=== PATIENT | male | born 1955 | race Caucasian/White ===

== ENCOUNTER 2023-05-27 01:51 | Day surgery (SDC) | payer MEDICARE, SELFPAY ==
[2023-05-14 09:33] VITALS: BMI 28.3
[2023-05-27 06:19] VITALS: BP 156/76; RESP 18; TEMP 36.1; O2SAT 97
[2023-05-27] MEDS: LACTATED RINGERS 1,000 ML 150 ML IV CONT (06:30)
--- NOTE | 2023-05-27 07:14 | P.PNAN_ITS ---
Anes - Initial Pre Proc Eval Procedure: Operation Date: 05/27/23 07:30 Proposed Procedures p Screening Colonoscopy - Shahzad Christensen MD Date/Time: 05/27/23 07:14 Surgeon: Shahzad Christensen MD Pre Op Diagnosis: neoplasm screening Patient Data Age: 68 Gender: M Height: 1.8 m Weight: 92.3 kg Last Vital Signs Temp 97 F L 05/27/23 06:19 Resp 18 05/27/23 06:19 BP 156/76 H 05/27/23 06:19 Pulse Ox 97 05/27/23 06:19 O2 Del Method Room Air 05/27/23 06:19 Allergies Allergy/AdvReac Type Severity Reaction Status Date / Time No Known Allergies Allergy Verified 05/27/23 06:18 Home Medications Medication Instructions Recorded Confirmed Type sodium,potassium,mag sulfates 17.5 See Rx Instructions PO .COMPLEX 04/17/23 Rx gram-3.13 gram-1.6 gram oral soln #354 mL (Suprep Bowel Prep Kit) alprazolam 0.5 mg tablet 0.5 mg PO TID PRN Anxiety 05/14/23 05/14/23 History Patient hx anesthesia problems: none Family hx anesthesia problems: none Results Review: All pre-operative results and documents have been reviewed as part of the pre- operative evaluation. [facility] Social History Social History Smoking status: Never smoker Alcohol intake: current Alcohol use details: Socially Substance use type: does not use Living arrangements: other Additional living arrangements comments: With sp Anes - Eval Final PreProcedure Day of Procedure 05/27/23 07:14 Patient weight: obese Heart: regular rate and rhythm Lungs: clear to auscultation Airway: Mallampati scale class II Neurological: alert and oriented Last oral intake: >/= 8 hours ASA classification: II Emergent: no Anesthetic plan: proceed Anesthesia type and monitoring: general GIVS and standard monitoring Results Review: All pre-operative results and documents have been reviewed as part of the pre- operative evaluation. Informed Consent: The patient's anesthetic plan and its attendant risks and benefits were discussed with the patient/family/POA. Questions were solicited and answers provided to the satisfaction of the patient/family/POA.
--- NOTE | 2023-05-27 07:38 | PM.HPGS ---
History of Present Illness History of Present Illness Consent: Risks, benefits, and alternatives have been discussed and questions answered. Patient agrees to proceed with procedure. Chief complaint: neoplasm screening Narrative: Robson Jasso is a 68 year old male Presents for screening colonoscopy. Patient reports previous colonoscopy 6 or 7 years ago performed to [facility] may have shown a colon polyp. Patient reports that his current weight appetite and bowel movements are normal. Patient denies abdominal pain. He has had no bleeding. Family history is noncontributory. Review of Systems Review of Systems: Review of systems noncontributory. [facility] Social History Social History Smoking status: Never smoker Alcohol intake: current Alcohol use details: Socially Substance use type: does not use Living arrangements: other Additional living arrangements comments: With sp Meds Home Medications and Allergies Home Medications Medication Instructions Recorded Confirmed Type sodium,potassium,mag sulfates 17.5 See Rx Instructions PO .COMPLEX 04/17/23 Rx gram-3.13 gram-1.6 gram oral soln #354 mL (Suprep Bowel Prep Kit) alprazolam 0.5 mg tablet 0.5 mg PO TID PRN Anxiety 05/14/23 05/14/23 History Allergies Allergy/AdvReac Type Severity Reaction Status Date / Time No Known Allergies Allergy Verified 05/27/23 06:18 Vital Signs Vital Signs - 24 hr 05/27/23 06:19 Temperature 97 F L Respiratory Rate 18 Blood Pressure 156/76 H Pulse Oximetry 97 Oxygen Delivery Room Air Exam Narrative: Physical exam reveals patient to be alert. Vital signs stable. HEENT exam is unremarkable. Patient is anicteric. Lungs are clear to auscultation and percussion part. Heart is without murmur or extra sounds. Abdomen bowel sounds are present soft nontender with no hepatosplenomegaly. Digital external rectal exam is normal. Assessment and Plan Assessment and plan (1) Encounter for screening colonoscopy: Code(s): Z12.11 - Encounter for screening for malignant neoplasm of colon Status: Acute Assessment and Plan: Patient presents today for colonoscopy. Appears to be at average risk for colon polyps. May have had colon polyps some years back.
[2023-05-27] MEDS: SIMETHICONE ORAL SUSPENSION 20 MG/0.3 ML 30 ML BOTTLE 0.6 ML IRRIGATION (07:44)
[2023-05-27 07:52] VITALS: BP 131/84; RESP 20; O2SAT 97
[2023-05-27 08:02] VITALS: BP 121/84; RESP 15; O2SAT 100
[2023-05-27 08:12] VITALS: BP 137/83; RESP 16; O2SAT 100
== END 2023-05-27 08:15 | disposition home or self-care (01) ==
PROVIDERS: PCP Family Medicine; Visit Provider Internal Medicine Gastroenterology
PROC: 0DJD8ZZ Inspection of Lower Intestinal Tract, Via Natural or Artificial Opening Endoscopic (ICD-10-PCS; CPT 45378; principal; 2023-05-27 07:30)
DX: Z12.11 Encounter for screening for malignant neoplasm of colon (principal); K57.30 Diverticulosis of large intestine without perforation or abscess without bleeding; K64.8 Other hemorrhoids; E66.9 Obesity, unspecified; Z68.28 Body mass index [BMI] 28.0-28.9, adult
CPT/HCPCS: G0121; J2704; J7120

== ENCOUNTER 2024-01-10 09:32 | Outpatient (CLI) | payer MEDICARE, SELFPAY ==
[2024-01-10 12:29] LABS: Alanine Aminotransferase 25 U/L (6-50); Albumin Level 4.5 g/dL (3.5-5.1); Alkaline Phosphatase 65 U/L (38-126); Anion Gap 4 mmol/L (4-12); Aspartate Amino Transferase 45 U/L (17-59); Bilirubin,Total 0.9 mg/dL (0.2-1.3); Blood Urea Nitrogen 16 mg/dL (9-20); Calcium 9.5 mg/dL (8.4-10.2); Carbon Dioxide 32 mmol/L (22-30); Chloride 102 mmol/L (98-107); Cholesterol 233 mg/dL (0-200); Estimated Glomerular Filt Rate > 60; Glucose 105 mg/dL (65-110); HDL Direct 48 mg/dL; Potassium 4.9 mmol/L (3.4-5.0); Sodium 138 mmol/L (137-145); Triglycerides 106 mg/dL (<150)
[2024-01-10 12:41] LABS: LDL Cholesterol Direct 159 mg/dL
[2024-01-10 18:36] LABS: Hematocrit 48.5 % (42.0-52.0); Hemoglobin 15.8 g/dL (14.0-18.0); Mean Corpuscular HGB Conc 32.6 g/dl (32-36); Mean Corpuscular Hemoglobin 30.3 pg (26-34); Mean Corpuscular Volume 92.9 fl (80-100); Mean Platelet Volume 10.2 fl (7.4-10.4); Platelet Count Result 206 k/mm3 (150-375); Red Blood Count 5.22 M/mm3 (4.6-6.20); Red Cell Distribution Width 12.7 % (11.5-14.5); White Blood Count 6.9 K/mm3 (4.5-10.0)
== END 2024-01-10 09:33 | disposition home or self-care (01) ==
LOC: ANHGOSHLAB 09:34
PROVIDERS: PCP Family Medicine; Visit Provider Family Medicine
DX: E78.5 Hyperlipidemia, unspecified (principal); E66.3 Overweight; Z79.899 Other long term (current) drug therapy
CPT/HCPCS: 36415; 80053; 80061; 84443; 85027

== ENCOUNTER 2024-05-08 08:35 | Outpatient (CLI) | payer MEDICARE, SELFPAY ==
[2024-05-08 14:43] LABS: Alanine Aminotransferase 24 U/L (6-50); Albumin Level 4.3 g/dL (3.5-5.1); Alkaline Phosphatase 60 U/L (38-126); Anion Gap 8 mmol/L (4-12); Aspartate Amino Transferase 40 U/L (17-59); Bilirubin,Total 0.9 mg/dL (0.2-1.3); Blood Urea Nitrogen 19 mg/dL (9-20); Calcium 8.9 mg/dL (8.4-10.2); Carbon Dioxide 30 mmol/L (22-30); Chloride 101 mmol/L (98-107); Cholesterol 213 mg/dL (0-200); Estimated Glomerular Filt Rate > 60; Glucose 100 mg/dL (65-110); HDL Direct 49 mg/dL; Potassium 4.5 mmol/L (3.4-5.0); Sodium 139 mmol/L (137-145); Triglycerides 120 mg/dL (<150)
[2024-05-08 14:45] LABS: Hematocrit 45.9 % (42.0-52.0); Hemoglobin 15.5 g/dL (14.0-18.0); Mean Corpuscular HGB Conc 33.8 g/dl (32-36); Mean Corpuscular Hemoglobin 31.1 pg (26-34); Mean Corpuscular Volume 92.2 fl (80-100); Mean Platelet Volume 10.3 fl (7.4-10.4); Platelet Count Result 196 k/mm3 (150-375); Red Blood Count 4.98 M/mm3 (4.6-6.20); Red Cell Distribution Width 12.8 % (11.5-14.5); White Blood Count 7.1 K/mm3 (4.5-10.0)
[2024-05-08 14:54] LABS: LDL Cholesterol Direct 140 mg/dL
[2024-05-08 15:14] LABS: Prostate Specific Antigen 8.5 ng/mL (< OR = 4.0)
== END 2024-05-08 08:36 | disposition home or self-care (01) ==
PROVIDERS: PCP Family Medicine; Visit Provider Family Medicine
DX: E78.5 Hyperlipidemia, unspecified (principal); Z12.5 Encounter for screening for malignant neoplasm of prostate; E66.3 Overweight; Z79.899 Other long term (current) drug therapy
CPT/HCPCS: 36415; 80053; 80061; 84153; 84443; 85027; G0103

== ENCOUNTER 2024-06-05 08:00 | Outpatient (CLI) | payer MEDICARE, SELFPAY ==
[2024-06-05 16:12] LABS: Hematocrit 43.3 % (42.0-52.0); Hemoglobin 14.6 g/dL (14.0-18.0); Mean Corpuscular HGB Conc 33.7 g/dl (32-36); Mean Corpuscular Hemoglobin 30.9 pg (26-34); Mean Corpuscular Volume 91.7 fl (80-100); Platelet Count Result 195 k/mm3 (150-375); Red Blood Count 4.72 M/mm3 (4.6-6.20); Red Cell Distribution Width 12.6 % (11.5-14.5); White Blood Count 6.2 K/mm3 (4.5-10.0)
[2024-06-05 16:20] LABS: Alanine Aminotransferase 28 U/L (6-50); Albumin Level 4.3 g/dL (3.5-5.1); Alkaline Phosphatase 67 U/L (38-126); Anion Gap 4 mmol/L (4-12); Aspartate Amino Transferase 37 U/L (17-59); Bilirubin,Total 1.1 mg/dL (0.2-1.3); Blood Urea Nitrogen 19 mg/dL (9-20); Calcium 9.1 mg/dL (8.4-10.2); Carbon Dioxide 32 mmol/L (22-30); Chloride 103 mmol/L (98-107); Cholesterol 145 mg/dL (0-200); Estimated Glomerular Filt Rate > 60; Glucose 91 mg/dL (65-110); HDL Direct 54 mg/dL; Sodium 139 mmol/L (137-145); Triglycerides 59 mg/dL (<150)
[2024-06-05 16:31] LABS: LDL Cholesterol Direct 70 mg/dL
[2024-06-05 16:46] LABS: Prostate Specific Antigen 7.7 ng/mL (< OR = 4.0)
== END 2024-06-05 08:01 | disposition home or self-care (01) ==
PROVIDERS: PCP Family Medicine; Visit Provider Family Medicine
DX: E78.5 Hyperlipidemia, unspecified (principal); E66.3 Overweight; R97.20 Elevated prostate specific antigen [PSA]; Z79.899 Other long term (current) drug therapy
CPT/HCPCS: 36415; 80053; 80061; 84153; 84443; 85027

== ENCOUNTER 2024-10-28 13:31 | Outpatient (CLI) | payer MEDICARE, SELFPAY ==
--- NOTE | ~2024-10-28 | PE_ITS ---
EXAMINATION: PET_PETPSMAST_PT DATE: 10/28/2024 15:42 INDICATION: Prostate cancer TECHNIQUE: 5.228 mCi of Illucix Ga-68([id number]) was administered i.v. Low dose computed tramaine graphy (CT) images were acquired from the base of the brain to the base of the brain to the proximal thighs for attenuation correction and anatomic localization. Positron emission tomography (PET) image s were acquired in the same distribution beginning 78 minutes after injection. Images including fused PET/CT images were reconstructed in axial, coronal, and sagittal planes. Automated exposure control technique was employed. The dose-length product was 1211.52mGy-cm. COMPARISON: None FINDINGS: Head/neck: Typical pattern of symmetric physiologic increased activity in the lacrimal, parotid and submandibula r glands as well as along the mucosa of the nasal and oral cavities, pharynx and hypopharynx. No path ologically enlarged cervical lymphadenopathy or suspicious foci of increased uptake in the visualized head or neck. Chest: Mild dependent atelectasis in the bilateral lower lobes. No suspicious pulmonary nodules, pneumonia, pulmonary edema or pleural effusion. Mild cardiomegaly. No pericardial effusion. Thoracic aorta is no rmal in caliber. Calcified right hilar lymph node consistent with old granulomatous disease. No patho logically enlarged or PSMA avid thoracic lymphadenopathy. Abdomen/pelvis/proximal thighs: Physiologic renal accumulation and excretion of activity in the kidneys, bladder and along portions o f ureters. Low-attenuation photopenic peripelvic cysts at the bilateral renal baldo the largest on the right measuring 4.6 cm. Prostatomegaly measuring 4.8 x 4.3 cm with regions of moderate increased upt bowen at the left posterior aspect with maximal SUV of 10.1. Normal degree and slightly heterogenous pa ttern of increased uptake throughout the liver and spleen without radiologic correlate or dominant PS MA avid lesion. Tiny calcified gallstones in the dependent aspect of the otherwise normal gallbladder . The gallbladder, pancreas and bilateral adrenal glands are normal. Moderate uptake scattered throug hout the bowels with typical duodenal and proximal jejunal predominance and without radiologic correl ate, also likely physiologic. Moderate sigmoid diverticulosis without adjacent from trace stranding t o suggest diverticulitis. Normal appendix. Small right-sided and moderate left sided fat-containing i nguinal hernias. No other abnormal foci of increased uptake or pathologically enlarged lymphadenopath y in the abdomen, pelvis or proximal thighs. Musculoskeletal: Severe lower cervical and lower lumbar spondylosis with mild to moderate intervening thoracic spondyl osis. No suspicious lytic, blastic or abnormally PSMA avid bone lesions. IMPRESSION: 1. Region of moderate increased uptake at the left posterior aspect of the enlarged prostate consiste nt with primary prostate cancer. No evident metastatic disease. 2. Cholelithiasis. Reviewed, dictated and finalized at location B. PASSENGER FIRER IMPRESSION: 1. Region of moderate increased uptake at the left posterior aspect of the enla rged prostate consistent with primary prostate cancer. No evident metastatic di sease. 2. Cholelithiasis.
--- OUTSIDE RECORDS SUMMARY | 2024-10-28 15:15 | XMS_ITS | CONTINUITY OF CARE DOCUMENT ---
Author Name elainemiki, asuncioncheyenne Address Unknown Organization [facility] Address [address] [address] [facility] [address] [place] [address] Phone [phone] Care Team Providers Care Online Merchandising Manager Name Role Phone Soumya ALLEN, Billy Unavailable [phone] KHALIF RUIZ MD Unavailable KHALIF RUIZ MD Unavailable [phone] PROBLEMS Condition Status Date Provider Notes Cardiology examination active Billy Dooley MD Family History of Hyperlipidemia: active Ra lea Dooley MD Vertiginous syndrome active Billy Lieberman White coat syndrome active Billy Dooley MD Chest pain-type to be determined active Enzo Dooley MD Hyperlipidemia active Billy Dooley MD Snoring active Billy Dooley MD Hypertension active Billy Dooley MD Sleep apnea active Billy Dooley MD ENCOUNTERS Date Type Provider Location Encounter Diag nosis 4 - 5 In-person encounter Office Visit Billy Dooley MD [facility] HypertensionSleep apnea 5 - 6 In-person encounter Office Visit Billy Dooley MD [facility] Cardiology examinationFamily History of Hyperlipidemia:Vertiginous syndromeWhite coat syndromeChest pain-type to be determinedHyperlipidemiaSnoring VITAL SIGNS Date Observation Value Provider Body Mass Index (Ratio) 30.12 kg/m2 Chucky Dooley MD blood pressure, cuff size regular Cy janie Marin blood pressure, diastolic 78 mm[Hg] Cy janie Marin blood pressure, systolic 140 mm[Hg] Millie Marin pulse rate 63 /min Wendi zhou oxygen saturation, oximetry 98 % Wendi Marin respiratory rate E&M 16 /min Wendi Marin weight E&M 216 [lb_av] Wendi zhou height E&M 71 [in_i] Wendi Thomas l Body Mass Index (Ratio) 29.98 kg/m2 Chucky Dooley MD blood pressure, resting No Orestes titrosalva Billy oxygen saturation, oximetry 94 % Chastity Billy blood pressure, diastolic 80 mm[Hg] Ch astity Billy blood pressure, systolic 142 mm[Hg] Jaqui stity Billy pulse rate 60 /min Chastity Billy height E&M 71 [in_i] Chastity Billy weight E&M 215 [lb_av] Chastity Billy respiratory rate E&M 16 /min Chastit y Billy ALLERGIES No Known Drug Allergies HISTORY OF MEDICATION USE Medication Status Instructions Dates Provider Indications Com ments ASPIRIN 81 81 MG ORAL TABLET DELAYED RELEASE active One Tab By Mouth Daily 6 Chastity Billy ALPRAZOLAM 0.5 MG ORAL TABLET active TAKE ONE TABLET BY MOUTH THREE TIMES DAILY NEEDED 6 Chastity Billy #90, 30 days supply, Prescribed by KHALIF RUIZ, Filled 09/19/2020 ESCITALOPRAM OXALATE 20 MG ORAL TABLET active TAKE 1 TABLET BY MOUTH EVERY DAY 6 Chastity Billy #30, 30 days supply, Prescribed by KHALIF RUIZ, Filled 11/17/2020 SOCIAL HISTORY Date Observation Value Provider social history E&M Marital Statu s: C hildren: 5 O ccupation: [place] S moking History: Smoking History: P atalexis has never smoked. Billy Dooley MD social history reviewed E&M revi ewed - no changes required Billy Dooley MD smoking status Never smoker Wendi Connorsjavier marrero social history reviewed E&M revi ewed - no changes required Billy Dooley MD social history E&M Marital Statu s: C hildren: 5 O ccupation: [place] Smoking History: P atient has never smoked. Billy Dooley MD smoking status Never smoker Mary Olsen e FAMILY HISTORY Family Member Condition Mother Family History of Hy perlipidemia: INSURANCE PROVIDERS Payer name Policy type / Coverage type [place] red libertarian ID [facility] [id number] 1 ADVANCE DIRECTIVES Name Date POWER OF LASTING ROOM SUPERVISOR TREATMENT PLAN Date Name Performer Cardiology follow up Billy cain MD Cardiology follow up Billy cain MD Cardiology follow up Billy cain MD Cardiology follow up Billy cain MD Cardiology follow up :Positive sleep study. C PAP titration scheduled Billy Dooley MD Cardiology follow up Billy cain MD Cardiology:Home sleep study. Enzo Dooley MD Cardiology:BP normal at home. Ra lea Dooley MD Cardiology:Try Nexlizet. Billy lopez MD Cardiology:Slowly im proving with meclizine. C heck carotids Billy Dooley MD Cardiology Billy Dooley MD Date Name Sleep Study Home Stress Exercise Card iolite Complete Echo Carotid Duplex Bilat eral HISTORY OF PROCEDURES Procedure Date Procedure Name Provider Procedure Notes S tatus EKG Billy Dooley MD complete d
--- OUTSIDE RECORDS SUMMARY | 2024-10-28 15:15 | XMS_ITS | Patient Health Summary ---
Author Organization [facility] Address [address] [address] Care Team Providers Care Operating Room Surgical Technician Name Role Phone Suni Maria MD Primary Care Provider [phone] Note from [facility],non-owned Affiliates and Associated Physician Practices is amultiple site organization consisting of ambulatory clinics and hospital sitesin [place], [place], [place] and [place]. This disclosure is being madepursuant to the Care Everywhere program and may not contain all information available regarding this patient. Last updated 18.[facility] Allergies * Atorvastatin(Other) * Rosuvastatin(Other) * Simvastatin(Other) Medications * Be aware that medications may not be up to date on this document. Alwaysverify current medications with the patient. * albuterol HFA (ProAir HFA) 108 (90 Base) MCG/ACT inhaler * ALPRAZolam (Xanax) 0.5 MG tablet Take 1 (one) tablet by mouth 3 times daily as needed * cyclobenzaprine (Flexeril) 5 MG tablet 1 po TID prn spasm * escitalopram (Lexapro) 10 MG tablet Take 1 tablet every day by oral route for 30 days. * QUEtiapine (SEROquel) 50 MG tablet Take 1 tablet twice a day by oral route for 30 days. * sildenafil (Viagra) 100 MG tablet TAKE 1 TABLET BY MOUTH 60 MINUTES PRIOR TO INTERCOURSE * NA-K-MG sulfates (Suprep) 17.5-3.13-1.6 GM/177ML solution(Started 04/17/2023) as directed * [place]-3 Fatty Acids (Fish Oil) 1200 MG * rosuvastatin (Crestor) 5 MG tablet(Started 05/15/2024) Take 1 (one) tablet by mouth once daily * lisinopril (Prinivil; Zestril) 5 MG tablet(Started 05/15/2024) Take 1 (one) tablet by mouth once daily Active Problems No known active problems Social History Tobacco Use Types Packs/Day Years Used Date Smoking Tobacco: Never Smokeless Tobacco: Never Tobacco Cessation:Counseling Given: Not Answered Sex and Gender Information Value Date Recorded Sex Assigned at Not on file Gender Identity Not on file Sexual Orientation Not on file Procedures * TX TANGNTL BX SKIN SINGLE LES(Performed 05/20/2024) Performed for Neoplasm of uncertain behavior * TX DESTROY PREMALIG LESION, 2-14(Performed 05/20/2024) Performed for Actinic keratoses * TX DESTROY PREMALIG LESION, 1ST LESION(Performed 05/20/2024) Performed for Actinic keratoses * DERMATOPATHOLOGY(Performed 05/20/2024) Performed for Neoplasm of uncertain behavior * TX DESTROY PREMALIG LESION, 1ST LESION(Performed 05/22/2023) Performed for Actinic keratosis * TX DESTROY PREMALIG LESION, 2-14(Performed 05/22/2023) Performed for Actinic keratosis * DERMATOPATHOLOGY(Performed 07/30/2012) Results * TX TANGNTL BX SKIN SINGLE LES (05/20/2024 11:04 AM CDT) Narrative Marry Davalos MD - 05/20/2024 11:04 AM CDT Marry Davalos MD 05/20/2024 11:05 AM Risks, benefits and alternatives to shave biopsy were discussed with the patient. Verbal consent was obtained. Encounter Diagnoses Name Primary? Neoplasm of uncertain behavior Yes Actinic keratoses Pizarro angioma Lentigines Seborrheic keratoses Location: rt buttock Skin prep: Alcohol Anesthesia: 1% lidocaine with epinephrine Hemostasis: Aluminum chloride Dressing and wound care discussed. Specimen(s) placed in a patient labeled container and sent to [facility] Dermatopathology. Patient agrees to phone call for results and message if not available. y Marry Davalos MD Marry Davalos MD PROCEDURE/MINOR SURG ICAL ORDERABLES * TX DESTROY PREMALIG LESION, 1ST LESION, TX DESTROY PREMALIG LESION, 2-14 (05/20/2024 11:03 AM CDT) Narrative Marry Davalos MD - 05/20/2024 11:03 AM CDT Marry Davalos MD 05/20/2024 11:03 AM Diagnosis and treatment options discussed. Cryotherapy (Liquid Nitrogen) to 6 lesions for 6-7 seconds each. Number of cycles: 1. Wound care reviewed. Marry Davalos MD PROCEDURE/MINOR SURG ICAL ORDERABLES * DERMATOPATHOLOGY (05/20/2024 12:00 AM CDT) Only the most recent of2 resultswithin the time period is included. Case Report Dermatopathology Report Case: [id number] Authorizing Provider: Marry Davalos MD Collected: 05/20/2024 12:00 AM Ordering Location: [facility] - Received: 05/20/2024 11:49 AM Dermatology Pathologist: Opal Neal MD Specimen: Skin, right lower back 4 3:07 PM CDT DERMATOPATHOLOGY LABORATORY Final Diagnosis Specimen A. SKIN, right lower back: NEVUS LIPOMATOSUS SUPERFICIALIS (D17.30) 4 3:07 PM CDT DERMATOPATHOLOGY LABORATORY Clinical History Acrochordon vs less likely irritated nevus 4 3:07 PM CDT DERMATOPATHOLOGY LABORATORY Gross Description Specimen A: Received is one formalin filled container labeled with the patient's name and designated right lower back. The specimen consists of a shave biopsy measuring 6x6x5 mm. Jar 0. 4 3:07 PM CDT DERMATOPATHOLOGY LABORATORY Microscopic Description Specimen A. SKIN, right lower back: There is a gently folded epidermis surrounding a connective tissue core in which fat and collagen are intermingled. 4 3:07 PM CDT DERMATOPATHOLOGY LABORATORY Disclaimer An external and internal positive and negative controls are appropriate for the histochemical, immunohistochemical and immunofluorescence stain(s) in this case (if any), except where stated explicitly. The performance characteristics of the stain(s) cited in this report were developed and its performance characteristic determined by the Dermatopathology Laboratory at [facility] directed by Dr. Stephon Padilla. These tests need not be, and therefore are not, approved by the [place] Food and Drug Administration. The tests are used for clinical purposes. Billing Codes Specimen Charges Stain Charges 40309 1 4 3:07 PM CDT DERMATOPATHOLOGY LABORATORY Embedded Images 4 3:07 PM CDT DERMATOPATHOLOGY LABORATORY Pathology/Cytolog y TISSUE SPECIMEN FROM SKIN / Unknown 05/20/2024 05/20/2024 11:49 AM CDT Marry Davalos MD LAB - PATHOLOGY/CYTO LOGY ORDERABLES DERMATOPATHOLOGY LABORATORY [facility] - Department of Dermatology [address] [phone] * TX DESTROY PREMALIG LESION, 2-14, TX DESTROY PREMALIG LESION, 1ST LESION (05/22/2023 9:01 AM CDT) Narrative Marry Davalos MD - 05/22/2023 9:01 AM CDT Marlin Santos MD 05/22/2023 9:02 AM Diagnosis and treatment options discussed, addressing the benefit and risks of each. Pt wish to proceed with cryotherapy. Liquid Nitrogen was applied to 4 lesions (L helix x2, R ear x2) for 7-10s each. Number of cycles: 1. Wound care reviewed. Marlin Santos MD [facility] Dermatology Resident Marry Davalos MD PROCEDURE/MINOR SURG ICAL ORDERABLES Care Teams Operating Room Surgical Technician Relationship Specialty Start Date End Date Suni Maria MD [address] [place] [address] [place] [phone] PCP - General 12/14/22
--- OUTSIDE RECORDS SUMMARY | 2024-10-28 15:15 | XMS_ITS | Clinical Summary ---
Author Organization [facility] Address [address] [place] [address] Care Team Providers Care Manager Proposal Name Role Phone Unavailable Primary Care Provider Unavailabl e Social History Tobacco Use Types Packs/Day Years Used Date Smoking Tobacco: Never Assessed Sex and Gender Information Value Date Recorded Sex Assigned at Not on file Legal Sex Male 7:41 PM CDT Gender Identity Not on file Sexual Orientation Not on file Plan of Treatment Health Maintenance Due Date Last Done Comments Colorectal Cancer Screening Colonoscopy (10 Years) 1953 Hepatitis C 1971 DTaP, Tdap and Td Vaccines ( 1 - Tdap) 1972 Zoster Vaccines (1 of 2) 2003 Pneumococcal Vaccine: 65+ Ye ars (1 of 1 - PCV) 2018 COVID-19 Vaccine ( - 2023-2 5 season) 2024 Influenza Adult (#1) 2024 RSV Immunization or 60+ Years (1 - 1-dose 75+ series) 2028 Meningococcal B Vaccine Aged Out No l onger eligible based on patient's age to complete this topic Meningococcal Vaccine Aged Out No lucho sofya eligible based on patient's age to complete this topic RSV Immunizations Under 20 Months Aged Out No longer eligible based on patient's age to complete this topic
--- OUTSIDE RECORDS SUMMARY | 2024-10-28 15:15 | XMS_ITS | Clinical Summary ---
Author Organization [facility] [employer] Address [address] [place] [address] Care Team Providers Care Bias Cutter Helper Name Role Phone Suni Maria MD Primary Care Provider [phone] Source Comments [facility] [employer],non-owned Affiliates and Associated Physician Practices is amultiple site organization consisting of ambulatory clinics and hospital sitesin [place], [place], [place] and [place]. This disclosure is being madepursuant to the Care Everywhere program and may not contain all information available regarding this patient. Last updated 18.[facility] [employer] Allergies Active Allergy Reactions Criticality Noted Date Comments Atorvastatin Other 05/22/2023 Rosuvastatin Other 05/22/2023 Simvastatin Other 05/22/2023 Medications * Be aware that medications may not be up to date on this document. Alwaysverify current medications with the patient. Medication Sig Dispensed Refills Start Date End Date Status albuterol HFA (ProAir HFA) 108 (90 Base) MCG/ACT inhaler Active ALPRAZolam (Xanax) 0.5 MG tablet Take 1 (one) tablet by mouth 3 times daily as needed Active cyclobenzaprine (Flexeril) 5 MG tablet 1 po TID prn spasm Active escitalopram (Lexapro) 10 MG tablet Take 1 tablet every day by oral route for 30 days. Active QUEtiapine (SEROquel) 50 MG tablet Take 1 tablet twice a day by oral route for 30 days. Active sildenafil (Viagra) 100 MG tablet TAKE 1 TABLET BY MOUTH 60 MINUTES PRIOR TO INTERCOURSE Active NA-K-MG sulfates (Suprep) 17.5-3.13-1.6 GM/177ML solution as directed 04/17/2023 Active [place]-3 Fatty Acids (Fish Oil) 1200 MG Active rosuvastatin (Crestor) 5 MG tablet Take 1 (one) tablet by mouth once daily 05/15/2024 Active lisinopril (Prinivil; Zestril) 5 MG tablet Take 1 (one) tablet by mouth once daily 05/15/2024 Active Active Problems No known active problems Social History Tobacco Use Types Packs/Day Years Used Date Smoking Tobacco: Never Smokeless Tobacco: Never Tobacco Cessation:Counseling Given: Not Answered Sex and Gender Information Value Date Recorded Sex Assigned at Not on file Gender Identity Not on file Sexual Orientation Not on file Plan of Treatment Upcoming Encounters Date Type Department Care Team (Late st Contact Info) Description 05/19/2025 11:30 AM CDT Office Visit [facility] - Dermatology [address] [place] [address], [facility] [place] [phone] Marry Davalos MD [address] [place] [address] [address] [place] [phone] Health Maintenance Due Date Last Done Comments COLOGUARD (AGES 45-75) - COLON CA SCREENING 1953 COLON MONITORING 1953 COLONOSCOPY - COLON CA SCREENING 1953 CT COLONOGRAPHY - COLON CA SCREENING 1955 Colorectal Cancer Screening 1953 FIT - COLON CA SCREENING 1953 FLEX SIG - COLON CA SCREENING 1955 MEDICARE AWV 12 MONTHS 1953 HEPATITIS C SCREENING 03/05/1971 DTAP/TDAP/TD VACCINES (1 - Tdap) 1972 PNEUMOCOCCAL VACCINE 50+ (1 of 1 - PCV) 2003 ZOSTER VACCINE (1 of 2) 2003 COVID-19 VACCINE (1 - 2023- season) 2024 INFLUENZA VACCINE (#1) 2024 9, 07/02/2018, 06/26/2018, Additional history exists DEPRESSION SCREENING 09/02/2024 Respiratory Syncytial Virus (RSV) Vaccine Pt: or over 60 yrs (1 - 1-dose 75+ series) 2028 HEPATITIS B VACCINE Aged Out No longe r eligible based on patient's age to complete this topic HIB VACCINE Aged Out No longer eligi ble based on patient's age to complete this topic HPV VACCINE Aged Out No longer eligi ble based on patient's age to complete this topic MENINGOCOCCAL (Group B) VACCINE Aged Out No longer eligible based on patient's age to complete this topic MENINGOCOCCAL VACCINE Aged Out No lucho sofya eligible based on patient's age to complete this topic Care Teams Bias Cutter Helper Relationship Specialty Start Date End Date Suni Maria MD [address] [phone] PCP - General 12/14/22
--- OUTSIDE RECORDS SUMMARY | 2024-10-28 15:15 | XMS_ITS | Referral Summary ---
Author Organization [facility] Address [address] [place] [address] Care Team Providers Care Hand Loom Weaver Name Role Phone Suni Maria MD Primary Care Provider [phone] Source Comments [facility] [employer],non-owned Affiliates and Associated Physician Practices is amultiple site organization consisting of ambulatory clinics and hospital sitesin [place], [place], [place] and [place]. This disclosure is being madepursuant to the Care Everywhere program and may not contain all information available regarding this patient. Last updated 18.[facility] [employer] Allergies Active Allergy Reactions Criticality Noted Date [...] 17.5-3.13-1.6 GM/177ML solution as directed 04/17/2023 Active [place]-3 Fatty Acids (Fish Oil) 1200 MG Active [...] Description 05/19/2025 11:30 AM CDT Office Visit [facility] - Dermatology [address] [place] [address], [facility] [place] [phone] Marry Davalos MD [address] [place] [address] [address] [place] [phone] Care Teams Hand Loom Weaver Relationship Specialty Start Date End Date Suni Maria MD [address] [place] [address] [place] [phone] PCP - General 12/14/22
[2024-10-28 18:51] LABS: Prostate Specific Antigen 10.4 ng/mL (< OR = 4.0)
== END 2024-10-28 13:32 | disposition home or self-care (01) ==
PROVIDERS: PCP Family Medicine; Visit Provider Radiology Radiation Oncology
DX: C61 Malignant neoplasm of prostate (principal); R97.20 Elevated prostate specific antigen [PSA]; Z51.0 Encounter for antineoplastic radiation therapy; Z19.1 Hormone sensitive malignancy status
CPT/HCPCS: 36415; 78815; 84153; A9596; G0103

== ENCOUNTER 2025-05-06 08:40 | Outpatient (CLI) | payer MEDICARE, SELFPAY ==
--- OUTSIDE RECORDS SUMMARY | 2025-05-06 08:46 | XMS_ITS | Clinical Summary ---
Author Organization [facility] [employer] Address [address] [place] [address] Care Team Providers Care Supervisor Blueprinting And Photocopy Name Role Phone Suni Maira MD Primary Care Provider Source Comments [facility] [employer],non-owned Affiliates and Associated Physician Practices is amultiple site organization consisting of ambulatory clinics and hospital sitesin [place], [place], [place]. This disclosure is being madepursuant to the Care Everywhere program and may not contain all information available regarding this patient. Last updated 18.[facility] [employer] Allergies Active Allergy Reactions Criticality Noted Date Comments Atorvastatin Other 05/22/2023 Rosuvastatin Other 05/22/2023 Simvastatin Other 05/22/2023 Medications * Be aware that medications may not be up to date on this document. Alwaysverify current medications with the patient. albuterol HFA (ProAir HFA) 108 (90 Base) MCG/ACT inhaler Acti ve ALPRAZolam (Xanax) 0.5 MG tablet Take 1 [...] sulfates (Suprep) 17.5-3.13-1.6 GM/177ML solution as directed 3 Active Ranson-3 Fatty Acids (Fish Oil) 1200 MG Active rosuvastatin (Crestor) 5 MG tablet Take 1 (one) tablet by mouth once daily 4 Active lisinopril (Prinivil; Zestril) 5 MG tablet Take 1 (one) tablet by mouth once daily 4 Active Active Problems No known active problems Social History Tobacco Use Types Packs/Day Years Used Date Smoking Tobacco: Never Smokeless Tobacco: Never Tobacco Cessation:Counseling Given: Not Answered Sex and Gender Information Value Date Recorded Sex Assigned at Not on file Legal 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 Gender Identity Not on file Sexual Orientation Not on file Plan of Treatment Upcoming Encounters Date Type Department Care Team (Late st Contact Info) Description 05/19/2025 11:30 AM CDT Office Visit [facility] - Dermatology [address] [place] [address], [facility] [place] [address] Marry Davalos MD [address] [place] [address] [address] [place] [address] Health Maintenance Due Date Last Done Comments [...] COVID-19 VACCINE (1 - 2023- season) 2024 DEPRESSION SCREENING 09/02/2024 INFLUENZA VACCINE (#1) 2025 9, 07/02/2018, 06/26/2018, Additional history exists Respiratory Syncytial Virus (RSV) Vaccine Pt: or [...] complete this topic MENINGOCOCCAL (Group B) VACCINE SHARED DECISION-MAKING Aged Out No longer eligible based on patient's age to complete this topic MENINGOCOCCAL GROUPS A/C/Y/W VACCINE Aged Out No longer eligible based on patient's age to complete this topic Insurance MEDICARE MEDICARE SUPPLEMENT PAYOR GENERIC Care Teams Supervisor Blueprinting And Photocopy Relationship Specialty Start Date End Date Suni Maria MD [address] [place] [address] [place] [phone] PCP - General 12/14/22
[2025-05-06 13:12] LABS: Hematocrit 39.9 % (42.0-52.0); Hemoglobin 13.4 g/dL (14.0-18.0); Mean Corpuscular HGB Conc 33.6 g/dl (32-36); Mean Corpuscular Hemoglobin 31.2 pg (26-34); Mean Corpuscular Volume 93.0 fl (80-100); Platelet Count Result 177 k/mm3 (150-375); Red Blood Count 4.29 M/mm3 (4.6-6.20); White Blood Count 5.1 K/mm3 (4.5-10.0)
[2025-05-06 13:23] LABS: Alanine Aminotransferase 31 U/L (6-50); Albumin Level 4.4 g/dL (3.5-5.1); Alkaline Phosphatase 71 U/L (38-126); Anion Gap 9 mmol/L (4-12); Aspartate Amino Transferase 39 U/L (17-59); Bilirubin,Total 0.8 mg/dL (0.2-1.3); Blood Urea Nitrogen 20 mg/dL (9-20); Calcium 9.5 mg/dL (8.4-10.2); Carbon Dioxide 25 mmol/L (22-30); Chloride 103 mmol/L (98-107); Cholesterol 195 mg/dL (0-200); Estimated Glomerular Filt Rate > 60; Glucose 102 mg/dL (65-110); HDL Direct 53 mg/dL; Potassium 4.3 mmol/L (3.4-5.0); Sodium 137 mmol/L (137-145); Total Protein 7.6 g/dL (6.3-8.2); Triglycerides 120 mg/dL (<150)
[2025-05-06 14:05] LABS: Thyroid Stimulating Hormone 2.130 uIU/mL (0.465-4.680)
== END 2025-05-06 08:41 | disposition home or self-care (01) ==
LOC: ANHGOSHLAB 08:42
PROVIDERS: PCP Family Medicine; Visit Provider Family Medicine
DX: F41.9 Anxiety disorder, unspecified (principal); Z79.899 Other long term (current) drug therapy; E78.5 Hyperlipidemia, unspecified; I10 Essential (primary) hypertension
CPT/HCPCS: 36415; 80053; 80061; 84443; 85027

== ENCOUNTER 2025-07-05 07:57 | Outpatient (CLI) | payer MEDICARE, SELFPAY ==
--- OUTSIDE RECORDS SUMMARY | 2025-07-05 08:04 | XMS_ITS | Clinical Summary ---
Author Organization [facility] Address [address] [place] [address] Care Team Providers Care Venture Capitalist Name Role Phone Unavailable Primary Care Provider [...] Td Vaccines ( 1 - Tdap) 1972 Pneumococcal Vaccine: 50+ Ye ars (1 of 1 - PCV) 2003 Zoster Vaccines (1 of 2) 2003 COVID-19 Vaccine (1 - 2024-2 6 season) 2025 Influenza Adult (#1) 2025 RSV Immunization or 60+ Years (1 - 1-dose 75+ series) 2028 Hepatitis A Vaccines Aged Out No long er eligible based on patient's age to complete this topic Meningococcal B Vaccine Aged Out No l onger eligible based on patient's age to complete this topic Meningococcal Vaccine Aged Out No lucho sofya eligible based on patient's age to complete this topic RSV Immunizations Under 20 Months Aged Out No longer eligible based on patient's age to complete this topic
--- OUTSIDE RECORDS SUMMARY | 2025-07-05 08:04 | XMS_ITS | Clinical Summary ---
Author Organization [facility] [employer] Address [address] [place] [address] Care Team Providers Care Science Editor Name Role Phone Suni Maria MD Primary Care Provider [phone] Source Comments [facility] [employer],non-owned Affiliates and Associated Physician Practices is amultiple site organization consisting of ambulatory clinics and hospital sitesin [place], [place], [place] and [place]. This disclosure is being madepursuant to the Care Everywhere program and may not contain all information available regarding this patient. Last updated 18.[facility] [employer] Allergies Active Allergy Reactions Criticality Noted Date Comments Atorvastatin Other 05/22/2023 Ceftriaxone Unknown 05/19/2025 Rosuvastatin Other 05/22/2023 Simvastatin Other 05/22/2023 Medications * Be aware that medications may not be up to date on this document. Alwaysverify current medications with the patient. ALPRAZolam (Xanax) 0.5 MG tablet Take 1 (one) tablet by mouth 3 times daily as needed Active Logan-3 Fatty Acids (Fish Oil) 1200 MG Active rosuvastatin (Crestor) 5 MG tablet Take 1 (one) tablet by mouth once daily 05/15/2024 Active losartan (Cozaar) 50 MG tablet Take 1 (one) tablet by mouth once daily 04/09/2025 Active ipratropium (Atrovent) 0.06 % nasal spray SPRAY 2 SPRAYS INTO BOTH NOSTRILS THREE TIMES A DAY Active tamsulosin (Flomax) 0.4 MG capsule TAKE ONE PILL EVERY NIGHT INCREASE TO TWICE DAILY NEEDED. 01/14/2025 Active Active Problems No known active problems Encounters Date Type Department Care Team Description 05/19/2025 11:30 AM CDT Office Visit [facility] - Dermatology [address] [place] [phone] Marry Davalos MD Multiple benign melanocytic nevi of both upper extremities, both lower extremities, and trunk (Primary Dx); Pizarro angioma; Lentigines; Seborrheic keratoses; Pilar cyst; Actinic keratoses 05/19/2025 Travel from Last 3 Months Social History Tobacco Use Types Packs/Day Years Used Date Smoking Tobacco: Never Smokeless Tobacco: Never Tobacco Cessation:Counseling Given: Not Answered Sex and Gender Information Value Date Recorded Sex Assigned at Not on file 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 Gender Identity Not on file Sexual Orientation Not on file Plan of Treatment Upcoming Encounters Date Type Department Care Team (Late st Contact Info) Description 05/18/2026 11:20 AM CDT Office Visit [facility] - Dermatology [address] [place] [phone] Marry Davalos MD [address] [place] [address] [address] [place] [address] Health Maintenance Due Date Last Done Comments [...] 2003 ZOSTER VACCINE (1 of 2) 2003 DEPRESSION SCREENING 09/02/2024 COVID-19 VACCINE (1 - season) 2025 INFLUENZA VACCINE (#1) 2025 9, 07/02/2018, 06/26/2018, [...] on patient's age to complete this topic Procedures Procedure Name Priority Date/Time Associated Diagnosis Comments [place] DESTROY PREMALIG LESION, 2-14 Routine 05/19/2025 11:40 AM CDT Actinic keratoses [place] DESTROY PREMALIG LESION, 1ST LESION Routine 05/19/2025 11:40 AM CDT Actinic keratoses from Last 3 Months Results * [place] DESTROY PREMALIG LESION, 1ST LESION, [place] DESTROY PREMALIG LESION, 2-14 (05/19/2025 11:40 AM CDT) Narrative Marry Davalos MD - 05/19/2025 11:40 AM CDT Marry Davalos MD 05/30/2025 11:31 PM Diagnosis and treatment options discussed. Cryotherapy (Liquid Nitrogen) to 14 lesions for 4-6 seconds each. Number of cycles: 1. Wound care reviewed. Cleo Alarcon MD [facility] Dermatology Resident Marry Davalos MD PROCEDURE/MINOR SURGICAL ORD ERABLES Final Result from Last 3 Months Insurance MEDICARE MEDICARE MEDICARE SUPPLEMENT PAYOR GENERIC Care Teams Science Editor Relationship Specialty Start Date End Date Suni Maria MD [address] [place] [phone] PCP - General 12/14/22
[2025-07-05 13:11] LABS: Hematocrit 39.1 % (42.0-52.0); Hemoglobin 13.1 g/dL (14.0-18.0); Immature Granulocyte Percent A 0.4 % (0-0.5); Lymphocytes Absolute Auto 0.80 K/mm3 (0.9-3.2); Mean Corpuscular HGB Conc 33.5 g/dl (32-36); Mean Corpuscular Hemoglobin 31.3 pg (26-34); Mean Corpuscular Volume 93.5 fl (80-100); Nucleated Red Blood Cells Absolute Auto 0.000 K/mm3 (0.0-0.012); Nucleated Red Blood Cells Perc 0.0 % (0.0-0.2); Platelet Count Result 176 k/mm3 (150-375); Red Blood Count 4.18 M/mm3 (4.6-6.20); White Blood Count 5.3 K/mm3 (4.5-10.0)
[2025-07-05 13:18] LABS: Alanine Aminotransferase 26 U/L (6-50); Albumin Level 4.4 g/dL (3.5-5.1); Alkaline Phosphatase 64 U/L (38-126); Anion Gap 7 mmol/L (4-12); Aspartate Amino Transferase 32 U/L (17-59); Bilirubin,Total 0.7 mg/dL (0.2-1.3); Blood Urea Nitrogen 16 mg/dL (9-20); Calcium 9.4 mg/dL (8.4-10.2); Carbon Dioxide 30 mmol/L (22-30); Chloride 103 mmol/L (98-107); Cholesterol 171 mg/dL (0-200); Estimated Glomerular Filt Rate > 60; Glucose 104 mg/dL (65-110); HDL Direct 60 mg/dL; Potassium 5.0 mmol/L (3.4-5.0); Sodium 140 mmol/L (137-145); Total Protein 7.4 g/dL (6.3-8.2); Triglycerides 103 mg/dL (<150)
[2025-07-05 13:51] LABS: Thyroid Stimulating Hormone 2.390 uIU/mL (0.465-4.680)
== END 2025-07-05 07:58 | disposition home or self-care (01) ==
LOC: ANHGOSHLAB 07:58
PROVIDERS: PCP Family Medicine; Visit Provider Family Medicine
DX: D64.9 Anemia, unspecified (principal); E78.5 Hyperlipidemia, unspecified; Z79.899 Other long term (current) drug therapy; I10 Essential (primary) hypertension
CPT/HCPCS: 36415; 80053; 80061; 84443; 85025; 85027

== ENCOUNTER 2025-07-06 08:02 | Outpatient (CLI) | payer MEDICARE, SELFPAY ==
--- OUTSIDE RECORDS SUMMARY | 2025-07-06 08:11 | XMS_ITS | Clinical Summary ---
Author Organization [facility] [employer] Address [address] [place] [address] Care Team Providers Care Jig Boring Machine Set Up Operator Name Role Phone Suni Maria MD Primary Care Provider [phone] Source Comments [facility] [employer],non-owned Affiliates and Associated Physician Practices is amultiple site organization consisting of ambulatory clinics and hospital sitesin [place], [place], [place] and [place]. This disclosure is being madepursuant to the Care Everywhere program and may not contain all information available regarding this patient. Last updated 18.[facility] [employer] Allergies Active Allergy Reactions Criticality Noted Date Comments Atorvastatin Other 05/22/2023 Ceftriaxone Unknown 05/19/2025 Rosuvastatin Other 05/22/2023 Simvastatin Other 05/22/2023 Medications * Be aware that medications may not be up to date on this document. Alwaysverify current medications with the patient. 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 Gender Identity Not on file Sexual Orientation Not on file Plan of Treatment Upcoming Encounters Date Type Department Care Team (Late st Contact Info) Description 05/18/2026 11:20 AM CDT Office Visit [facility] - Dermatology [address] [place] [phone] Marry Davalos MD [address] [place] [address] [address] [place] [address] Health Maintenance Due Date Last Done Comments [...] Procedure Name Priority Date/Time Associated Diagnosis Comments [place] DESTROY PREMALIG LESION, 2-14 Routine 05/19/2025 11:40 AM CDT Actinic keratoses [place] DESTROY PREMALIG LESION, 1ST LESION Routine 05/19/2025 11:40 AM CDT Actinic keratoses from Last 3 Months Results * [place] DESTROY PREMALIG LESION, 1ST LESION, [place] DESTROY PREMALIG LESION, 2-14 (05/19/2025 11:40 AM CDT) Narrative Marry Davalos MD - 05/19/2025 11:40 AM CDT Marry Davalos MD 05/30/2025 11:31 PM Diagnosis and treatment options discussed. Cryotherapy (Liquid Nitrogen) to 14 lesions for 4-6 seconds each. Number of cycles: 1. Wound care reviewed. Cleo Alarcon MD [facility] Dermatology Resident Marry Davalos MD PROCEDURE/MINOR SURGICAL ORD ERABLES Final Result from Last 3 Months Insurance MEDICARE MEDICARE MEDICARE SUPPLEMENT PAYOR GENERIC Care Teams Jig Boring Machine Set Up Operator Relationship Specialty Start Date End Date Suni Maria MD [address] [place] [phone] PCP - General 12/14/22
--- OUTSIDE RECORDS SUMMARY | 2025-07-06 08:11 | XMS_ITS | Clinical Summary ---
Author Organization [facility] Address [address] [place] [address] Care Team Providers Care Featheredge Machine Operator Name Role Phone Unavailable Primary Care Provider [...]
[2025-07-06 16:24] LABS: Vitamin B12 421.0 pg/mL (239-931)
[2025-07-06 21:07] LABS: Iron 80 ug/dL (49-181)
[2025-07-06 21:19] LABS: Percent Iron Saturation 31 % (20-50)
[2025-07-06 21:45] LABS: Ferritin 256.00 ng/mL (11.1-264)
== END 2025-07-06 08:03 | disposition home or self-care (01) ==
LOC: ANHGOSHLAB 08:03
PROVIDERS: PCP Family Medicine; Visit Provider Family Medicine
DX: D64.9 Anemia, unspecified (principal)
CPT/HCPCS: 36415; 82607; 82728; 82746; 83540; 83550